=== PATIENT | female | born 1970 | race Caucasian/White ===

== ENCOUNTER 2017-04-16 21:28 | Emergency (ER) | payer OTHER ==
--- NOTE | 2017-04-16 23:17 | DIAGNOSTIC IMAGING REPORT ---
PROCEDURE: US VENOUS - BILATERAL EXT INDICATION: Lower extremity swelling. TECHNIQUE: Color Doppler duplex imaging of the deep and superficial venous system without and with compression. COMPARISON: None. FINDINGS: RIGHT LOWER EXTREMITY: Deep and superficial venous system of the right lower extremity is within normal limits. There is no evidence of deep vein thrombosis or superficial thrombophlebitis. LEFT LOWER EXTREMITY: Deep and superficial venous system of the left lower extremity is within normal limits. There is no evidence of deep vein thrombosis or superficial thrombophlebitis. IMPRESSION: 1. Negative venous ultrasound of the bilateral lower extremities.
--- NOTE | 2017-04-17 00:40 | ED CLINICAL REPORT ---
Clinical Report - Physicians/Mid Levels [facility] [address] [place] [address] 04/16/2017 21:29 Patient: NANETTE MIRANDA Time Seen: 2144. Arrived- By private vehicle. Historian- patient. HISTORY OF PRESENT ILLNESS Chief Complaint: LOWER EXTREMITY SWELLING. Severity is described as being moderate. The quality is noted to be similar to prior episodes. This started past few days and is still present (unchanged). It was gradual in onset and has been constant but is not gone now. The patient has had swelling. No difficulty walking. No bladder dysfunction, bowel dysfunction, sensory loss or motor loss. ( recent bladder mesh and sling procedure. states she was doing well. no other concerns. did have urinary retention and needed a aguilar but that was stopped a few days ago and has been doing well since.). Patient denies an injury. Similar symptoms previously: None. Recent medical care: Not recently seen/assessed. REVIEW OF SYSTEMS No chest pain, difficulty breathing, fever, skin rash or abdominal pain. All systems otherwise negative, except as recorded above. PAST HISTORY See nurses notes. Pulmonary embolism/DVT risk factors: recent surgery. Has not had recent IA. No history of cancer, DVT or pulmonary embolism. Not taking estrogens. Does not have advanced age as a risk factor or immobility as a risk factor. Medications: ASA Oral 81mg , daily . Estradiol Oral (Tablet 1 mg) 1 tablet, daily . Iron Oral. LaMICtal Oral (Tablet 100 mg) 3 tabs, daily. Lasix Oral 20 mg, daily. Lyrica Oral (Capsule 50 mg) 1 capsule, daily . Metoprolol Tartrate Oral 25 mg, daily . Mirapex Oral (Tablet 1 mg), daily. Potassium (pt unsure of dose ). PROzac Oral 40mg, daily. SEROquel Oral 100 mg, daily (just started yesterday ). Allergies: Benadryl. Possible Mild(restlessness) Haloperidol and Related. Side-Effect Severe(restlessness) (severe restlessness, required Cogentin and no relief. ) Toradol. Possible Mild(restlessness) Ultram. Vicodin.(itching). SOCIAL HISTORY Never smoker. History of occasional drug use: marijuana. No alcohol use. No recent travel. Is a local resident. ADDITIONAL NOTES The nursing notes have been reviewed. PHYSICAL EXAM Vital Signs: 04/16/2017 21:36 BP: 121/75. HR: 77. RR: 16. O2 saturation: 99%. Temp: 98.1 F. Pain level now: 5/10. Blood pressure normal. Oxygen saturation normal. Appearance: Alert. Oriented X3. No acute distress. Eyes: Pupils equal, round and reactive to light. Eyes normal inspection. CVS: Normal heart rate and rhythm. Heart sounds normal. Respiratory: No respiratory distress. Breath sounds normal. Abdomen: Soft and nontender. No organomegaly. Back: Normal inspection. No tenderness. ROM normal. Skin: Skin intact. Skin warm and dry. Normal skin color. Normal skin turgor. Extremities: Lower extremities exhibit normal ROM. Bilateral mild 1+ pitting edema of the lower extremities involving both feet, both ankles and both lower legs. Extremities not otherwise negative. Gait: Normal gait. Neuro: No motor deficit. No sensory deficit. LABS, X-RAYS, AND EKG Lower Extremity Sonography: PROCEDURE: US VENOUS - BILATERAL EXT INDICATION: Lower extremity swelling. TECHNIQUE: Color Doppler duplex imaging of the deep and superficial venous system without and with compression. COMPARISON: None. FINDINGS: RIGHT LOWER EXTREMITY: Deep and superficial venous system of the right lower extremity is within normal limits. There is no evidence of deep vein thrombosis or superficial thrombophlebitis. LEFT LOWER EXTREMITY: Deep and superficial venous system of the left lower extremity is within normal limits. There is no evidence of deep vein thrombosis or superficial thrombophlebitis. IMPRESSION: 1. Negative venous ultrasound of the bilateral lower extremities. The study was independently viewed by me and interpreted by the radiologist. The study was discussed with the radiologist (via pacs). Laboratory Tests: UA-Culture if indicated: (KATHERINE: 04/17/2017 00:10) ( MsgRcvd 04/17/2017 00:21) Final results Test Result Flag Units (Reference) URINE COLOR YELLOW URINE APPEARANCE CLEAR URINE GLUCOSE NEGATIVE (NEGATIVE) URINE BILIRUBIN NEGATIVE (NEGATIVE) URINE KETONE NEGATIVE (NEGATIVE) URINE SPECIFIC GRAVITY 1.015 (1.010-1.030) URINE PH 6.0 (5.0-8.0) URINE PROTEIN NEGATIVE (NEGATIVE) URINE UROBILINOGEN 0.2 EU/dL (0.2-1.0) URINE NITRITE NEGATIVE (NEGATIVE) URINE BLOOD 3+ (NEGATIVE) URINE LEUK ESTERASE NEGATIVE (NEGATIVE) URINE RBC 5-10 rbc/hpf (0-1) URINE WBC 1-3 wbc/hpf (0-1) URINE EPITHELIAL CELLS 1-3 EPI/hpf (0-5) URINE BACTERIA TRACE (<1+) (NONE SEEN) URINE COMMENT CULT NOT INDICATED URINE CULTURES ARE SET-UP BASED ON THE FOLLOWING CRITERIA:POSITIVE NITRITEPOSITIVE LEUKOCYTE ESTERASEGREATER THAN 10 WHITE BLOOD CELLSMODERATE (2+) OR GREATER BACTERIA CBC w Diff: (KATHERINE: 04/16/2017 23:10) ( [facility] [place] 04/16/2017 23:28) Final results Test Result Flag Units (Reference) WHITE BLOOD COUNT 5.9 K/uL (4.5-11.5) RED BLOOD COUNT 3.76 L M/uL (4.00-5.20) HEMOGLOBIN 11.0 L gm/dL (12.0-16.0) HEMATOCRIT 34.0 L % (36.0-46.0) MEAN CELL VOLUME 90 fL (80-100) MEAN CORPUSCULAR HGB 29 pg (26-34) MEAN CORPUSCULAR HGB CONC 33 g/dL (31-37) RED CELL DISTRIBUTION WIDTH 14.7 % (11.6-14.8) PLATELET COUNT 168 K/uL (150-400) LYMPH % 38.1 % (25-40) MONO % 4.8 % (3-14) GRANULOCYTE % 57.1 (53-90) [id number]: (KATHERINE: 04/16/2017 23:10) ( [facility] [place] 04/16/2017 23:32) Final results Test Result Flag Units (Reference) D-DIMER QUANTITATIVE 0.37 ug/mLFEU (0.27-0.52) The primary value of this quantitative assay relates toits negative predictive value (i.e. exclusion) of pulmonaryembolism/deep vein thrombosis/DIC.Elevated levels of d-dimer may also occur with:, age, cancer, inflammation, liver disease,post-op, infection, hematoma, coronary disease, peripheralarteriopathy, bleeding disorders and thrombolytic treatment.Results should be correlated with other clinical andradiological data.Testing Methodology: Latex Immunoassay CMP: (KATHERINE: 04/16/2017 23:10) ( MsgRcvd 04/16/2017 23:36) Final results Test Result Flag Units (Reference) GLUCOSE 106 mg/dL (70-110) BUN 8 mg/dL (7-18) CREATININE 0.8 mg/dL (0.6-1.3) Estimated GFR >60 mL/min Estimated GFR- >60 mL/min Note: Persistent reduction over 3 months in eGFR<60 mL/min/1.73 m2 defines CKD. Patients with eGFR values>=60 mL/min/1.73 m2 may also have CKD if evidence ofpersistent proteinuria. Additional information may be foundat [email or web address].org. SODIUM 141 mmol/L (136-145) POTASSIUM 3.1 L mmol/L (3.5-5.1) CHLORIDE 105 mmol/L (98-107) CARBON DIOXIDE 30 mmol/L (21-32) CALCIUM 8.3 L mg/dL (8.5-10.1) TOTAL PROTEIN 6.9 g/dL (6.4-8.2) ALBUMIN 3.2 L g/dL (3.3-5.0) BILIRUBIN, TOTAL 0.3 mg/dL (0.0-1.0) ALKALINE PHOSPHATASE 120 H U/L (46-116) AST (SGOT) 25 U/L (15-37) ALT (SGPT) 26 U/L (12-78) . PROGRESS AND PROCEDURES Course of Care: The patient is a 47 yeasr old female presenting for evaluation of bilateral lower extremity swelling. Patient with risk factor for DVT with recent surgery. Patient will be evaluated with a d-dimer as well as ultrasound of the lower extremities. We'll also be evaluating for electrolyte abnormalities and renal function as well as liver function. Do not feel symptoms at this time would be caused by heart failure. Patient had recent surgery without any complications. Patient is agreeable to the treatment and plan. Workup has been ordered. Patient is resting in bed and in no acute distress. Patient does have some discomfort having recent surgery. Pain medication has been offered here in the emergency department. The patient's workup was unremarkable for the findings above. Because of the patient's negative workup. Emergency department for DVT, Do not feel patient requires further evaluation for DVT. Patient's d-dimer and ultrasound are negative. Patient likely with third spacing secondary to recent surgery. Edema in the gravity dependent areas will be treated with increasing the patient's Lasix. She desired on Lasix for lower extremity edema. Do not feel patient's edema is the results of a more sinister etiology. 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 All questions have been answered. The patient expressed understanding of these instructions and was agreeable to them. Prior to patient's departure from the emergency department she was noted to be resting in bed and in no acute distress. No neurovascular compromise. Compartments continued to be soft. Disposition: Discharged. Condition: good. CLINICAL IMPRESSION 04/16/2017 21:36 BP: 121/75. HR: 77. RR: 16. O2 saturation: 99%. Temp: 98.1 F. Pain level now: 5/10. Blood pressure normal. Oxygen saturation normal. Hypokalemia (acute). INSTRUCTIONS Warnings: GENERAL WARNINGS: Return or contact your physician immediately if your condition worsens or changes unexpectedly, if not improving as expected, or if other problems arise. Specifically return if pain, vomiting, bleeding, breathing difficulty or fever. Your Current Medications: CONTINUE TAKING THE FOLLOWING MEDICATIONS: ASA Oral : 81mg daily. Estradiol Oral : Tablet 1 mg, 1 tablet daily. Iron Oral. LaMICtal Oral : Tablet 100 mg, 3 tabs daily. Lasix Oral : 20 mg daily. Lyrica Oral : Capsule 50 mg, 1 capsule daily. Metoprolol Tartrate Oral : 25 mg daily. Mirapex Oral : Tablet 1 mg, daily. Potassium* : pt unsure of dose. PROzac Oral : 40mg daily. SEROquel Oral : 100 mg daily, just started yesterday. Prescription Medications: Lasix 20 mg: take 1 orally every 24 hours. Dispense ten (10). No refills. Substitution is permissible. (take in addition to your normal med) Potassium Chloride 20 mEq: take 1 orally every 12 hours - Dispense thirty (30) No refills. Follow-up: Return to the emergency department as needed. Follow up with your doctor in three days. Reason for referral: recheck today's concerns. Summary of care provided to patient via paper. Screening today revealed the patient's blood pressure to be in the normal range. The patient should follow up with a primary care provider for blood pressure management. Understanding of the discharge instructions verbalized by patient. (Electronically signed by López Mckoy Dr. 04/18/2017 16:50)
--- NOTE | 2017-04-17 00:40 | ED ORDER SUMMARY ---
..... Patient: NANETTE MIRANDA OrderSheet [facility] VisitID: [id number] [address] [place] [address] 47y, F Registration Date/Time: 04/16/2017 ORDER SHEET Weight: 110.2 kg (stated) Allergies: Benadryl, Haloperidol and Related, Toradol, Ultram, Vicodin GENERAL ORDERS: US Venous Bilat Urgent (22:00 04/16/2017 Cecil Carmona) (Ack 22:05 [facility] Nicker And Breaker) (23:27 Diana R.N.) CBC w Diff Urgent (:04/16/2017 Cecil Carmona) (Ack 22:05 [facility] [employer]er And Breaker) (23:26 Diana R.N.) CMP Urgent (22:04/16/2017 Cecil Carmona) (Ack 22:05 [facility] [employer] And Breaker) (23:27 Diana R.N.) UA-Culture if indicated Urgent (22:04/16/2017 Cecil Carmona) (Ack 22:05 [facility] [employer]er And Breaker) (0:13 Diana R.N.) D-Dimer Urgent (22:04/16/2017 Cecil Carmona) (Ack 22:05 [facility] [employer]er And Breaker) (23:27 Diana R.N.) Potassium Urgent (00:01 04/17/2017 Cecil Carmona) (Ack 0:06 [facility] [employer]er And Breaker) (Cancelled: error0:07 Cecil Carmona) MEDICATION ORDERS: Potassium Chloride PO 60 meq (NOW) (00:01 04/17/2017 Cecil Carmona) (0:13 Diana R.N.) IV FLUIDS: Morphine IV 4 mg (HIGH ALERT MEDICATION, NOW) (22:04/16/2017 Cecil Carmona) (23:26 Diana R.N.) IV Saline Lock (:04/16/2017 Cecil Carmona) (23:25 Diana R.N.) Morphine IV 8 mg (HIGH ALERT MEDICATION, NOW) (23:53 04/16/2017 Cecil Carmona) (23:59 Diana Quintero) ORDER SHEET NOTES: [Electronically signed by Cal Schulz R.N. (:37 04/17/2017)] [Electronically signed by López Mckoy Dr. (16:50 04/18/2017)] [Electronically locked/signed by Cal Schulz R.N. (:37 04/17/2017)]
--- NOTE | 2017-04-17 00:40 | ED ORDER SUMMARY ---
..... Patient: NANETTE MIRANDA OrderSheet [facility] VisitID: [id number] [address] [place] [address] 47y, F Registration Date/Time: 04/16/2017 ORDER SHEET Weight: 110.2 kg (stated) Allergies: Benadryl, Haloperidol and Related, Toradol, Ultram, Vicodin GENERAL ORDERS: US Venous Bilat Urgent (22:00 04/16/2017 Cecil Carmona) (Ack 22:05 [facility] Ice Rink Attendant) (23:27 Diana R.N.) CBC w Diff Urgent (:04/16/2017 Cecil Carmona) (Ack 22:05 [facility] Ice Rink Attendant) (23:26 Diana R.N.) CMP Urgent (22:04/16/2017 Cecil Carmona) (Ack 22:05 [facility] Ice Rink Attendant) (23:27 Diana R.N.) UA-Culture if indicated Urgent (22:04/16/2017 Cecil Carmona) (Ack 22:05 [facility] Ice Rink Attendant) (0:13 Diana R.N.) D-Dimer Urgent (22:04/16/2017 Cecil Carmona) (Ack 22:05 [facility] Ice Rink Attendant) (23:27 Diana R.N.) Potassium Urgent (00:01 04/17/2017 Cecil Carmona) (Ack 0:06 [facility] Ice Rink Attendant) (Cancelled: error0:07 Cecil Carmona) MEDICATION ORDERS: Potassium Chloride PO 60 meq (NOW) (00:01 04/17/2017 Cecil Carmona) (0:13 Diana R.N.) IV FLUIDS: Morphine IV 4 mg (HIGH ALERT MEDICATION, NOW) (22:04/16/2017 Cecil Carmona) (23:26 Diana R.N.) IV Saline Lock (:04/16/2017 Cecil Carmona) (23:25 Diana R.N.) Morphine IV 8 mg (HIGH ALERT MEDICATION, NOW) (23:53 04/16/2017 Cecil Carmona) (23:59 Diana Quintero) ORDER SHEET NOTES: [Electronically signed by Cal Schulz R.N. (:37 04/17/2017)] [Electronically signed by López Mckoy Dr. (16:50 04/18/2017)] [Electronically locked/signed by Cal Schulz R.N. (:37 04/17/2017)]
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
--- NOTE | 2017-04-18 16:50 | ED MED RECONCILIATION SUMMARY ---
Patient: NANETTE MIRANDA Medication Reconciliation Report [facility] VisitID: [id number] [address] [place] [address] 47y, F Registration Date/Time: 04/16/2017 Weight: 110.2 kg Height/Length: 65 in. BMI: 40.5 ALLERGIES: Benadryl, Haloperidol and Related, Toradol, Ultram, Vicodin The patient's Home Medications are listed below: CONTINUE TAKING THE FOLLOWING MEDICATIONS: ASA Oral 81mg , daily Estradiol Oral (1 mg) 1 tablet, daily Iron Oral LaMICtal Oral (100 mg) 3 tabs, daily Lasix Oral 20 mg, daily Lyrica Oral (50 mg) 1 capsule, daily Metoprolol Tartrate Oral 25 mg, daily Mirapex Oral (1 mg), daily Potassium, pt unsure of dose PROzac Oral 40mg, daily SEROquel Oral 100 mg, daily, just started yesterday The source(s) of the original Home Medication information: patient The following Medications were given to the patient in the Emergency Department: Morphine [IVP] IVP 4 mg, administered: 04/16/2017 11:16:00 PM Morphine [IVP] IVP 8 mg, administered: 04/16/2017 11:54:00 PM Potassium Chloride [PO] PO 60 meq, administered: 04/17/2017 12:08:00 AM The following Medications were prescribed to the patient: Lasix 20 mg: take 1 orally every 24 hours. Dispense ten (10). No refills. Substitution is permissible.(take in addition to your normal med) -- López Mckoy Dr. Potassium Chloride 20 mEq: take 1 orally every 12 hours - Dispense thirty (30) No refills. -- López Mckoy Dr.
--- NOTE | 2017-04-18 16:50 | ED MED RECONCILIATION SUMMARY ---
Patient: NANETTE MIRANDA Medication Reconciliation Report [facility] VisitID: [id number] [address] [place] [address] 47y, F Registration Date/Time: 04/16/2017 Weight: 110.2 kg Height/Length: 65 in. BMI: 40.5 ALLERGIES: Benadryl, Haloperidol and Related, Toradol, Ultram, Vicodin The patient's Home Medications are listed below: CONTINUE TAKING THE FOLLOWING MEDICATIONS: ASA Oral 81mg , daily Estradiol Oral (1 mg) 1 tablet, daily Iron Oral LaMICtal Oral (100 mg) 3 tabs, daily Lasix Oral 20 mg, daily Lyrica Oral (50 mg) 1 capsule, daily Metoprolol Tartrate Oral 25 mg, daily Mirapex Oral (1 mg), daily Potassium, pt unsure of dose PROzac Oral 40mg, daily SEROquel Oral 100 mg, daily, just started yesterday The source(s) of the original Home Medication information: patient The following Medications were given to the patient in the Emergency Department: Morphine [IVP] IVP 4 mg, administered: 04/16/2017 11:16:00 PM Morphine [IVP] IVP 8 mg, administered: 04/16/2017 11:54:00 PM Potassium Chloride [PO] PO 60 meq, administered: 04/17/2017 12:08:00 AM The following Medications were prescribed to the patient: Lasix 20 mg: take 1 orally every 24 hours. Dispense ten (10). No refills. Substitution is permissible.(take in addition to your normal med) -- López Mckoy Dr. Potassium Chloride 20 mEq: take 1 orally every 12 hours - Dispense thirty (30) No refills. -- López Mckoy Dr.
--- NOTE | 2017-04-18 16:50 | ED MAR SUMMARY ---
..... Medication Administration Record [facility] [address] [place] [address] Patient: NANETTE MIRANDA Visit ID: [id number] 47y, F Weight: 110.2 kg Height/Length: 65 in BMI: 40.5 ALLERGIES: Benadryl, Haloperidol and Related, Toradol, Ultram, Vicodin Given 23:16 04/16/2017 Cal Schulz RJustinN. Medication Administered: MORPHINE [IVP], Dose: 4 mg IVP over 2 minute(s), Site: #1 right AC. Medication Ordered: Morphine IV 4 mg (HIGH ALERT MEDICATION, NOW). Given 23:54 04/16/2017 Cal Schulz RNereida. Medication Administered: MORPHINE [IVP], Dose: 8 mg IVP over 2 minute(s), Site: #1 right AC. Medication Ordered: Morphine IV 8 mg (HIGH ALERT MEDICATION, NOW). Given 00:08 04/17/2017 Cal Schulz RJustinN. Medication Administered: POTASSIUM CHLORIDE [PO] (POTASSIUM CHLORIDE ER), Dose: 60 meq Tablets PO. Medication Ordered: Potassium Chloride PO 60 meq (NOW).
--- NOTE | 2017-04-18 16:50 | ED DISCHARGE INSTRUCTIONS ---
Patient: NANETTE MIRANDA General Instructions [facility] VisitID: [id number] [address] [place] [address] 47y, F Registration Date/Time: 04/16/2017 04/16/2017 21:36 BP: 121/75. HR: 77. RR: 16. O2 saturation: 99%. Temp: 98.1 F. Pain level now: 5/10. Blood pressure normal. Oxygen saturation normal. Hypokalemia (acute). INSTRUCTIONS Warnings: GENERAL WARNINGS: Return or contact your physician immediately if your condition worsens or changes unexpectedly, if not improving as expected, or if other problems arise. Specifically return if pain, vomiting, bleeding, breathing difficulty or fever. Your Current Medications: CONTINUE TAKING THE FOLLOWING MEDICATIONS: ASA Oral : 81mg daily. Estradiol Oral : Tablet 1 mg, 1 tablet daily. Iron Oral. LaMICtal Oral : Tablet 100 mg, 3 tabs daily. Lasix Oral : 20 mg daily. Lyrica Oral : Capsule 50 mg, 1 capsule daily. Metoprolol Tartrate Oral : 25 mg daily. Mirapex Oral : Tablet 1 mg, daily. Potassium* : pt unsure of dose. PROzac Oral : 40mg daily. SEROquel Oral : 100 mg daily, just started yesterday. Prescription Medications: Lasix 20 mg: take 1 orally every 24 hours. Dispense ten (10). No refills. Substitution is permissible. (take in addition to your normal med) Potassium Chloride 20 mEq: take 1 orally every 12 hours - Dispense thirty (30) No refills. Follow-up: Return to the emergency department as needed. Follow up with your doctor in three days. Reason for referral: recheck today's concerns. Summary of care provided to patient via paper. Screening today revealed the patient's blood pressure to be in the normal range. The patient should follow up with a primary care provider for blood pressure management. Understanding of the discharge instructions verbalized by patient. ADDITIONAL INFORMATION Hypokalemia Hypokalemia means a low level of potassium in the blood. This most often occurs in patients who take diuretics (water pills). It can also occur due to severe vomiting or diarrhea. A mild case usually causes no symptoms. It is only found with blood testing. More severe potassium loss causes generalized weakness, muscle or abdominal cramping, heart palpitations (rapid or irregular heartbeats) and low blood pressure. Home Care: 1) Take any potassium supplements prescribed. 2) Eat foods rich in potassium. The highest amount is found in artichoke, baked potatoes, spinach, cantaloupe, honeydew melon, cod, halibut, salmon, and scallops. White, red, or alvarado beans are also very good sources. A modest amount is found in orange juice, bananas, carrots, and tomato juice. 3) Certain types of diuretics (water pills), such as Lasix (furosemide), require that you take potassium supplements for as long as you take the diuretic pills. If you are taking a diuretic, discuss the need for potassium supplements with your doctor. Follow Up with your doctor for a repeat blood test within the next week or as advised by our staff. Get Prompt Medical Attention if any of the following occur: -- Increased weakness -- Feeling dizzy -- Irregular heartbeat, extra beats or very fast heart rate -- Fainting spell Furosemide Oral tablet What is this medicine? FUROSEMIDE (fyoor [place] se mide) is a diuretic. It helps you make more urine and to lose salt and excess water from your body. This medicine is used to treat high blood pressure, and edema or swelling from heart, kidney, or liver disease. How should I use this medicine? Take this medicine by mouth with a glass of water. Follow the directions on the prescription label. You may take this medicine with or without food. If it upsets your stomach, take it with food or milk. Do not take your medicine more often than directed. Remember that you will need to pass more urine after taking this medicine. Do not take your medicine at a time of day that will cause you problems. Do not take at bedtime. Talk to your steelworker regarding the use of this medicine in children. While this drug may be prescribed for selected conditions, precautions do apply. What side effects may I notice from receiving this medicine? Side effects that you should report to your doctor or health care transition coordinator as soon as possible: blood in urine or stools dry mouth fever or chills hearing loss or ringing in the ears irregular heartbeat muscle pain or weakness, cramps skin rash stomach upset, pain, or nausea tingling or numbness in the hands or feet unusually weak or tired vomiting or diarrhea yellowing of the eyes or skin Side effects that usually do not require medical attention (report to your doctor or health care transition coordinator if they continue or are bothersome): headache loss of appetite unusual bleeding or bruising What may interact with this medicine? aspirin and aspirin-like medicines certain antibiotics chloral hydrate cisplatin cyclosporine digoxin diuretics laxatives lithium medicines for blood pressure medicines that relax muscles for surgery methotrexate NSAIDs, medicines for pain and inflammation like ibuprofen, naproxen, or indomethacin phenytoin steroid medicines like prednisone or cortisone sucralfate What if I miss a dose? If you miss a dose, take it as soon as you can. If it is almost time for your next dose, take only that dose. Do not take double or extra doses. Where should I keep my medicine? Keep out of the reach of children. Store at room temperature between 15 and 30 degrees C (59 and 86 degrees F). Protect from light. Throw away any unused medicine after the expiration date. What should I tell my health care provider before I take this medicine? They need to know if you have any of these conditions: abnormal blood electrolytes diarrhea or vomiting gout heart disease kidney disease, small amounts of urine, or difficulty passing urine liver disease an unusual or allergic reaction to furosemide, sulfa drugs, other medicines, foods, dyes, or preservatives or trying to get breast-feeding What should I watch for while using this medicine? Visit your doctor or health care transition coordinator for regular checks on your progress. Check your blood pressure regularly. Ask your doctor or health care transition coordinator what your blood pressure should be, and when you should contact him or her. If you are a diabetic, check your blood sugar as directed. You may need to be on a special diet while taking this medicine. Check with your doctor. Also, ask how many glasses of fluid you need to drink a day. You must not get dehydrated. You may get drowsy or dizzy. Do not drive, use machinery, or do anything that needs mental alertness until you know how this drug affects you. Do not stand or sit up quickly, especially if you are an older patient. This reduces the risk of dizzy or fainting spells. Alcohol can make you more drowsy and dizzy. Avoid alcoholic drinks. This medicine can make you more sensitive to the sun. Keep out of the sun. If you cannot avoid being in the sun, wear protective clothing and use sunscreen. Do not use sun lamps or tanning beds/booths. You have been given the following additional information: Hypokalemia Furosemide Oral tablet (Electronically signed by López Mckoy Dr. 04/18/2017 16:50)
--- NOTE | 2017-04-18 16:50 | ED DISCHARGE INSTRUCTIONS ---
Patient: NANETTE MIRANDA General Instructions [facility] VisitID: [id number] [address] [place] [address] 47y, F Registration Date/Time: 04/16/2017 04/16/2017 21:36 BP: 121/75. HR: 77. RR: 16. O2 saturation: 99%. Temp: 98.1 F. Pain level now: 5/10. Blood pressure normal. Oxygen saturation normal. Hypokalemia (acute). INSTRUCTIONS Warnings: GENERAL WARNINGS: Return or contact your physician immediately if your condition worsens or changes unexpectedly, if not improving as expected, or if other problems arise. Specifically return if pain, vomiting, bleeding, breathing difficulty or fever. Your Current Medications: CONTINUE TAKING THE FOLLOWING MEDICATIONS: ASA Oral : 81mg daily. Estradiol Oral : Tablet 1 mg, 1 tablet daily. Iron Oral. LaMICtal Oral : Tablet 100 mg, 3 tabs daily. Lasix Oral : 20 mg daily. Lyrica Oral : Capsule 50 mg, 1 capsule daily. Metoprolol Tartrate Oral : 25 mg daily. Mirapex Oral : Tablet 1 mg, daily. Potassium* : pt unsure of dose. PROzac Oral : 40mg daily. SEROquel Oral : 100 mg daily, just started yesterday. Prescription Medications: Lasix 20 mg: take 1 orally every 24 hours. Dispense ten (10). No refills. Substitution is permissible. (take in addition to your normal med) Potassium Chloride 20 mEq: take 1 orally every 12 hours - Dispense thirty (30) No refills. Follow-up: Return to the emergency department as needed. Follow up with your doctor in three days. Reason for referral: recheck today's concerns. Summary of care provided to patient via paper. Screening today revealed the patient's blood pressure to be in the normal range. The patient should follow up with a primary care provider for blood pressure management. Understanding of the discharge instructions verbalized by patient. ADDITIONAL INFORMATION Hypokalemia Hypokalemia means a low level of potassium in the blood. This most often occurs in patients who take diuretics (water pills). It can also occur due to severe vomiting or diarrhea. A mild case usually causes no symptoms. It is only found with blood testing. More severe potassium loss causes generalized weakness, muscle or abdominal cramping, heart palpitations (rapid or irregular heartbeats) and low blood pressure. Home Care: 1) Take any potassium supplements prescribed. 2) Eat foods rich in potassium. The highest amount is found in artichoke, baked potatoes, spinach, cantaloupe, honeydew melon, cod, halibut, salmon, and scallops. White, red, or alvarado beans are also very good sources. A modest amount is found in orange juice, bananas, carrots, and tomato juice. 3) Certain types of diuretics (water pills), such as Lasix (furosemide), require that you take potassium supplements for as long as you take the diuretic pills. If you are taking a diuretic, discuss the need for potassium supplements with your doctor. Follow Up with your doctor for a repeat blood test within the next week or as advised by our staff. Get Prompt Medical Attention if any of the following occur: -- Increased weakness -- Feeling dizzy -- Irregular heartbeat, extra beats or very fast heart rate -- Fainting spell Furosemide Oral tablet What is this medicine? FUROSEMIDE (fyoor [place] se mide) is a diuretic. It helps you make more urine and to lose salt and excess water from your body. This medicine is used to treat high blood pressure, and edema or swelling from heart, kidney, or liver disease. How should I use this medicine? Take this medicine by mouth with a glass of water. Follow the directions on the prescription label. You may take this medicine with or without food. If it upsets your stomach, take it with food or milk. Do not take your medicine more often than directed. Remember that you will need to pass more urine after taking this medicine. Do not take your medicine at a time of day that will cause you problems. Do not take at bedtime. Talk to your electrical design engineer regarding the use of this medicine in children. While this drug may be prescribed for selected conditions, precautions do apply. What side effects may I notice from receiving this medicine? Side effects that you should report to your doctor or health client care coordinator as soon as possible: blood in urine or stools dry mouth fever or chills hearing loss or ringing in the ears irregular heartbeat muscle pain or weakness, cramps skin rash stomach upset, pain, or nausea tingling or numbness in the hands or feet unusually weak or tired vomiting or diarrhea yellowing of the eyes or skin Side effects that usually do not require medical attention (report to your doctor or health client care coordinator if they continue or are bothersome): headache loss of appetite unusual bleeding or bruising What may interact with this medicine? aspirin and aspirin-like medicines certain antibiotics chloral hydrate cisplatin cyclosporine digoxin diuretics laxatives lithium medicines for blood pressure medicines that relax muscles for surgery methotrexate NSAIDs, medicines for pain and inflammation like ibuprofen, naproxen, or indomethacin phenytoin steroid medicines like prednisone or cortisone sucralfate What if I miss a dose? If you miss a dose, take it as soon as you can. If it is almost time for your next dose, take only that dose. Do not take double or extra doses. Where should I keep my medicine? Keep out of the reach of children. Store at room temperature between 15 and 30 degrees C (59 and 86 degrees F). Protect from light. Throw away any unused medicine after the expiration date. What should I tell my health care provider before I take this medicine? They need to know if you have any of these conditions: abnormal blood electrolytes diarrhea or vomiting gout heart disease kidney disease, small amounts of urine, or difficulty passing urine liver disease an unusual or allergic reaction to furosemide, sulfa drugs, other medicines, foods, dyes, or preservatives or trying to get breast-feeding What should I watch for while using this medicine? Visit your doctor or health client care coordinator for regular checks on your progress. Check your blood pressure regularly. Ask your doctor or health client care coordinator what your blood pressure should be, and when you should contact him or her. If you are a diabetic, check your blood sugar as directed. You may need to be on a special diet while taking this medicine. Check with your doctor. Also, ask how many glasses of fluid you need to drink a day. You must not get dehydrated. You may get drowsy or dizzy. Do not drive, use machinery, or do anything that needs mental alertness until you know how this drug affects you. Do not stand or sit up quickly, especially if you are an older patient. This reduces the risk of dizzy or fainting spells. Alcohol can make you more drowsy and dizzy. Avoid alcoholic drinks. This medicine can make you more sensitive to the sun. Keep out of the sun. If you cannot avoid being in the sun, wear protective clothing and use sunscreen. Do not use sun lamps or tanning beds/booths. You have been given the following additional information: Hypokalemia Furosemide Oral tablet (Electronically signed by López Mckoy Dr. 04/18/2017 16:50)
--- NOTE | 2017-04-18 16:50 | ED MAR SUMMARY ---
..... Medication Administration Record [facility] [address] [place] [address] Patient: NANETTE MIRANDA Visit ID: [id number] 47y, F Weight: 110.2 kg Height/Length: 65 in BMI: 40.5 ALLERGIES: Benadryl, Haloperidol and Related, Toradol, Ultram, Vicodin Given 23:16 04/16/2017 Cal Schulz RJustinN. Medication Administered: MORPHINE [IVP], Dose: 4 mg IVP over 2 minute(s), Site: #1 right AC. Medication Ordered: Morphine IV 4 mg (HIGH ALERT MEDICATION, NOW). Given 23:54 04/16/2017 Cal Schulz RNereida. Medication Administered: MORPHINE [IVP], Dose: 8 mg IVP over 2 minute(s), Site: #1 right AC. Medication Ordered: Morphine IV 8 mg (HIGH ALERT MEDICATION, NOW). Given 00:08 04/17/2017 Cal Schulz RJustinN. Medication Administered: POTASSIUM CHLORIDE [PO] (POTASSIUM CHLORIDE ER), Dose: 60 meq Tablets PO. Medication Ordered: Potassium Chloride PO 60 meq (NOW).
== END 2017-04-17 01:30 | disposition home or self-care (01) ==
LOC: ED SRH 21:28
DX: E87.6 Hypokalemia (principal); Z79.899 Other long term (current) drug therapy; Z88.8 Allergy status to other drugs, medicaments and biological substances; Z88.5 Allergy status to narcotic agent
CPT/HCPCS: 90004; 90100; 91556; 95059